=== PATIENT | female | born 1985 | race Caucasian/White ===

== ENCOUNTER 2018-07-28 16:45 | Outpatient (CLI) | payer OTHER ==
[2018-07-28 19:05] VITALS: BP 118/67; PULSE 90; RESP 16; TEMP 97.2
--- NOTE | 2018-07-28 19:11 | P.MSEPDOC ---
Presenting Problems - Arrival Data Date of Arrival on Unit: 07/28/18 Time of Arrival on Unit: 16:40 Mode of Transport: Ambulatory - Complaint OB-Reason for Admission/Chief Complaint: Decreased Movement Comment: decreased movement all day, but still having some movements Medical History - Information : 3 Para: 2 Term: 2 : 0 Abortions: Spontaneous or Elective: 0 Number of Living Children: 2 - Gestational Age Gestational Age by TIFFANY (wks/days): 37 Weeks and 4 Days - History Complications: Smoker Review of Systems - Review of Systems Constitutional: No problems Breast: No problems ENT: No problems Cardiovascular: No problems Respiratory: No problems Gastrointestinal: No problems Genitourinary: No problems Musculoskeletal: No problems Neurological: No problems Skin: No problems Vital Signs - Temperature Temperature: 97.2 F Temperature Source: Temporal Artery Scan - Pulse Right Pulse Rate: 90 Pulse Assessment Method: Pulse Oximetry - Respirations Respiratory Rate: 16 O2 Sat by Pulse Oximetry: 98 - Blood Pressure Right Arm Blood Pressure: 118/67 Blood Pressure Mean: 84 Blood Pressure Source: Automatic Cuff Medical Screen Scoring (Pre) - Cervical Exam Dilation: Exam Deferred Effacement: Exam Deferred - Uterine Contractions Frequency: > 5 minutes apart = 1 Duration: > 40 seconds = 2 Intensity: N/A - Maternal Vital Signs Maternal Temperature: N/A Maternal Blood Pressure: N/A Signs of Preeclampsia: N/A Maternal Respirations: N/A - Pain Assessment Pain Scale Used: Numeric (1 - 10) Pain Intensity: 0 - Assessment Baseline FHR: 125 Heart Rate - NICHD Category: Category I (Normal) = 0 NST: Reactive Position: N/A Station: N/A - Total Score Total Score (Pre): 3 - Level of Risk Level of Risk: Low (0-5) Physician Notification (Pre) - Physician Notified Physician Notified Date: 07/28/18 Physician Notified Time: 17:24 Physician/Practitioner Notifed:: Dr Andrade - Notification Comment Comment: reported on pts c/o having decreased movement throughout the day , but is still having some movement. pt was seen at [facility] and sent here for further evaluation. Reported on pt having +quad screen, and is having NSTs weekly and u/s biweekly. Next appt is in office on [place]. reactive fhts at this time, increased movement, pt feeling better. orders to d/c home with instructions, return with worsening sx, keep scheduled appt. Disposition - Disposition OB Disposition: Discharge to home Discharge Date: 07/28/18 Discharge Time: 17:35 I agree with the RN Medical Screening Exam: Yes Risk & Benefit of care provided described in d/c instruction: Yes Diagnosis: DECREASED MOVEMENTS, THIRD TRIMESTER, UNSP
== END 2018-07-28 17:35 | disposition home or self-care (01) ==
LOC: FBPOP 16:45
PROVIDERS: ATTEND Obstetrics & Gynecology
DX: O36.8130 Decreased fetal movements, third trimester, not applicable or unspecified (principal); O99.333 Smoking (tobacco) complicating pregnancy, third trimester; Z3A.37 37 weeks gestation of pregnancy
CPT/HCPCS: 59025; G0463; 99213

== ENCOUNTER 2018-08-02 02:45 | Outpatient (CLI) | payer OTHER ==
[2018-08-02 04:47] VITALS: BP 125/80; PULSE 89; RESP 16; TEMP 96.8
--- NOTE | 2018-08-04 11:39 | P.MSEPDOC ---
Presenting Problems - Arrival Data Date of Arrival on Unit: 08/02/18 Time of Arrival on Unit: 02:45 Mode of Transport: Ambulatory - Complaint OB-Reason for Admission/Chief Complaint: Possible Onset of Labor, Vaginal Bleeding Medical History - Information : 3 Para: 2 Term: 2 : 0 Abortions: Spontaneous or Elective: 0 Number of Living Children: 2 - Gestational Age Gestational Age by TIFFANY (wks/days): 38 Weeks and 2 Days - History Complications: Smoker Comment: pt to triage c/o contractions and bleedign when she wiped Review of Systems - Review of Systems Constitutional: No problems Breast: No problems ENT: No problems Cardiovascular: No problems Respiratory: No problems Gastrointestinal: No problems Genitourinary: No problems Musculoskeletal: No problems Neurological: No problems Skin: No problems Vital Signs - Temperature Temperature: 96.8 F Temperature Source: Temporal Artery Scan - Pulse Right Supine Brachial Pulse Rate: 89 Pulse Assessment Method: Automatic Cuff - Respirations Respiratory Rate: 16 Oxygen Delivery Method: Room Air O2 Sat by Pulse Oximetry: 98 - Blood Pressure Right Arm Supine Blood Pressure: 125/80 Blood Pressure Mean: 95 Blood Pressure Source: Automatic Cuff Medical Screen Scoring (Pre) - Cervical Exam Dilation: 1-3 cm = 1 Effacement: More than 50% = 2 Membranes: Intact - Uterine Contractions Frequency: > or = 36 weeks =2 Duration: > 40 seconds = 2 - Maternal Vital Signs Maternal Temperature: N/A Maternal Blood Pressure: N/A Signs of Preeclampsia: N/A - Pain Assessment Pain Location and Character: Medial, Abdomen Pain Scale Used: Numeric (1 - 10) Pain Intensity: 5 Pain Description: *Acute, Cramping Pain Frequency: Intermittent Pain Duration: 3 Pain Duration Units: Hours Pain Behavior: Moving Slowly Effects of Pain: contractions Pain Aggravating Factors: Contractions - Maternal Trauma Maternal Trauma: N/A - Assessment Baseline FHR: 120 Heart Rate - NICHD Category: Category I (Normal) = 0 NST: Reactive - Total Score Total Score (Pre): 7 - Level of Risk Level of Risk: Medium (6-9) Physician Notification (Pre) - Physician Notified Physician Notified Date: 08/02/18 Physician Notified Time: 04:10 Physician/Practitioner Notifed:: Dr Solorzano Spoke With: Dr Solorzano New Order Received: Yes (may discharge to home) - Notification Comment Comment: Pt was 2-3 in the office at last check, has appointment for monday with Dr Mazariegos, feels comfortable going home at this time Disposition - Disposition OB Disposition: Discharge to home Discharge Date: 08/02/18 Discharge Time: 04:18 I agree with the RN Medical Screening Exam: Yes Risk & Benefit of care provided described in d/c instruction: Yes Diagnosis: FALSE LABOR AT OR AFTER 37 COMPLETED WEEKS OF GESTATION
== END 2018-08-02 04:18 | disposition home or self-care (01) ==
LOC: FBPOP 02:45
PROVIDERS: ATTEND Obstetrics & Gynecology
DX: O47.1 False labor at or after 37 completed weeks of gestation (principal); Z3A.38 38 weeks gestation of pregnancy
CPT/HCPCS: 59025; G0463; 99213

== ENCOUNTER 2018-08-02 08:39 | Inpatient (IN) | payer OTHER ==
[2018-08-02] MEDS ORDERED: LIDOCAINE 0.5% (PF) 5 MG/ML (50 ML SDV) SQ PRN (09:01)
[2018-08-02] MEDS ORDERED: CARBOPROST TROMETHAMINE 250 MCG/ML 1 ML AMP IM PRN (09:01)
[2018-08-02] MEDS ORDERED: TERBUTALINE 1 MG/ML VIAL SQ PRN (09:01)
[2018-08-02] MEDS ORDERED: METHYLERGONOVINE 0.2 MG/ML 1 ML AMP IM PRN (09:01)
[2018-08-02] MEDS ORDERED: OXYTOCIN 10 UNIT/ML 1 ML VIAL IM PRN (09:01)
[2018-08-02 09:18] LABS: Basophils % (A) 0 %; Eosinophils # (A) 0.1 k/uL (0-0.7); Eosinophils % (A) 1 %; HCT 35.4 % (34.0-46.0); HGB 12.2 gm/dL (11.4-16.0); Lymphocytes # (A) 1.6 k/uL (1.0-4.8); Lymphocytes % (A) 9 %; MCH 32.9 pg (25.0-35.0); MCHC 34.5 g/dL (31.0-37.0); MCV 95.4 fL (80.0-100.0); Mean Platelet Volume 7.6; Monocytes # (A) 0.5 k/uL (0-1.0); Monocytes % (A) 3 %; Neutrophils # (A) 15.1 k/uL (1.3-7.7); Neutrophils % (A) 87 %; Platelet Count 211 k/uL (150-450); RBC 3.71 m/uL (3.80-5.40); RDW 13.5 % (11.5-15.5); WBC 17.5 k/uL (3.8-10.6)
--- NOTE | 2018-08-02 09:54 | P.HPOB ---
History of Present Illness H&P Date: 08/02/18 Chief Complaint: [place] 33-year-old presents at 38 weeks and 2 days in active labor. Her cervix was 6 cm dilated, 100% effaced, and -2 station. She is malachi every 2 minutes. heart tones 130-135 with moderate variability and reactive. Review of Systems All systems: negative Constitutional: Denies chills, Denies fever Eyes: denies blurred vision, denies pain Ears, nose, mouth and throat: Denies headache, Denies sore throat Cardiovascular: Denies chest pain, Denies shortness of breath Respiratory: Denies cough Gastrointestinal: Denies abdominal pain, Denies diarrhea, Denies nausea, Denies vomiting Genitourinary: Denies dysuria, Denies hematuria Musculoskeletal: Denies myalgias Integumentary: Denies pruritus, Denies rash Neurological: Denies numbness, Denies weakness Psychiatric: Denies anxiety, Denies depression Endocrine: Denies fatigue, Denies weight change Past Medical History Past Medical History: No Reported History Additional Past Medical History / Comment(s): Obstetrics history: She's had 2 previous vaginal deliveries, this is her third . She's had care with Dr. Sebastian. She did have an abnormal quad screen and was seen at [facility]. [facility] testing and ultrasound was normal. Blood type O+, antibodies negative , rubella immune, hepatitis B-, GBS negative, HIV nonreactive, RPR nonreactive. History of Any Multi-Drug Resistant Organisms: None Reported Past Surgical History: No Surgical Hx Reported Past Anesthesia/Blood Transfusion Reactions: No Reported Reaction Past Psychological History: No Psychological Hx Reported Smoking Status: Current every day smoker Past Alcohol Use History: None Reported Past Drug Use History: None Reported Medications and Allergies Home Medications Medication Instructions Recorded Confirmed Type Pnv,Calcium 72/Iron/Folic Acid 1 each PO DAILY 07/28/18 08/02/18 History [ Plus Tablet] Allergies Allergy/AdvReac Type Severity Reaction Status Date / Time No Known Allergies Allergy Verified 08/02/18 02:51 Exam Osteopathic Statement: *. No significant issues noted on an osteopathic structural exam other than those noted in the History and Physical/Consult. Intake and Output 08/01/18 08/02/18 08/02/18 22:59 06:59 14:59 Other: Weight 68.946 kg Heart: Regular rate and rhythm Lungs: Clear to auscultation bilaterally Abdomen: Soft, nontender Extremities: Negative Homans sign Results Result Diagrams: 08/02/18 09:05 Abnormal Lab Results - Last 24 Hours (Table) 08/02/18 Range/Units 09:05 WBC 17.5 H (3.8-10.6) k/uL RBC 3.71 L (3.80-5.40) m/uL Neutrophils # 15.1 H (1.3-7.7) k/uL Assessment and Plan (1) Normal labor Current Visit: Yes Status: Acute Code(s): O80 - ENCOUNTER FOR FULL-TERM UNCOMPLICATED DELIVERY; Z37.9 - OUTCOME OF DELIVERY, UNSPECIFIED SNOMED Code(s ): 57395816 Plan: 1. Admit to family place 2. Expectant management 3. Anticipate normal vaginal delivery
--- NOTE | 2018-08-02 09:56 | P.PROBDLV ---
Vaginal Delivery Note - . Vaginal Delivery Note: 33-year-old presents at 38 weeks and 2 days in active labor. Her cervix was 6 cm dilated, 100% effaced, and -2 station. She is malachi every 2 minutes. heart tones 130-135 with moderate variability and reactive. Patient was admitted for labor. Amniotomy was performed at 9:21 AM, clear fluid noted. Her cervix was completely dilated 941. She pushed, delivered a viable female over intact perineum at 9:44 AM. Head delivered OA, anterior shoulder which was the left shoulder delivered gentle downward guidance followed by posterior shoulder and rest of body. Nose and mouth bulb suctioned, cord clamped and cut, placed on mother's abdomen. Apgars 9, 9 , weight 6 lbs. 15 oz. Placenta delivered spontaneously, intact with three- vessel cord at 9:47 AM. Vagina, cervix, and perineum were inspected. No lacerations noted. Estimated blood loss 150 mL. Mother and baby in stable condition.
[2018-08-02 10:15] VITALS: BMI 26.1
[2018-08-02] MEDS ORDERED: LANOLIN CREAM 5 GM TUBE TOPICAL PRN (10:30)
[2018-08-02] MEDS ORDERED: diphenhydrAMINE 50 MG CAP PO PRN (10:30)
[2018-08-02] MEDS ORDERED: diphenhydrAMINE 25 MG CAP PO PRN (10:30)
[2018-08-02] MEDS ORDERED: WITCH HAZEL 1 EACH MED..PAD TOPICAL PRN (10:30)
[2018-08-02] MEDS ORDERED: HYDROCORTISONE 2.5% RECTAL CREAM 30 GM TUBE RECTAL PRN (10:30)
[2018-08-02] MEDS ORDERED: diphenhydrAMINE 50 MG/ML 1 ML VIAL IVP PRN ×2 (10:30)
[2018-08-02] MEDS ORDERED: BENZOCAINE/MENTHOL SPRAY 1 GM/SPRAY AEROSOL TOPICAL PRN (10:30)
[2018-08-02] MEDS ORDERED: ACETAMINOPHEN TAB 325 MG TAB PO PRN (10:30)
[2018-08-02] MEDS ORDERED: ZOLPIDEM 5 MG TAB PO PRN (10:30)
[2018-08-02] MEDS ORDERED: OXYTOCIN 20 UNITS/1000 ML NS 1,000 ML IV SCH (10:30)
[2018-08-02] MEDS ORDERED: SIMETHICONE 80 MG CHEWABLE PO PRN (10:30)
[2018-08-02] MEDS: IBUPROFEN 600 MG TAB PO PRN ×2 (10:52→16:05)
[2018-08-02] MEDS: LACTATED RINGERS 1,000 ML IV SCH ×3 (10:55→18:45)
[2018-08-02 11:46] VITALS: RESP 16
[2018-08-02] MEDS: SENNOSIDES-DOCUSATE SODIUM 1 EACH TAB PO SCH (20:01)
[2018-08-02 20:32] VITALS: TEMP 97.8
[2018-08-03 06:39] LABS: Basophils % (A) 0 %; Eosinophils # (A) 0.2 k/uL (0-0.7); Eosinophils % (A) 2 %; HCT 34.2 % (34.0-46.0); HGB 11.7 gm/dL (11.4-16.0); Lymphocytes # (A) 2.3 k/uL (1.0-4.8); Lymphocytes % (A) 17 %; MCH 33.4 pg (25.0-35.0); MCHC 34.2 g/dL (31.0-37.0); MCV 97.7 fL (80.0-100.0); Mean Platelet Volume 7.8; Monocytes # (A) 0.4 k/uL (0-1.0); Monocytes % (A) 3 %; Neutrophils % (A) 77 %; Platelet Count 203 k/uL (150-450); RDW 13.6 % (11.5-15.5); WBC 13.1 k/uL (3.8-10.6)
[2018-08-03 08:11] VITALS: BP 111/69; PULSE 70
--- NOTE | 2018-08-03 08:16 | P.DS ---
Providers Date of admission: 08/02/18 08:52 Expected date of discharge: 08/03/18 Attending physician: Tylor Mazariegos Primary care physician: Stated None Hospital Course: This is a 33-year-old female 3 para 2 at 38-2/7 weeks who presented with active labor. She delivered vaginally a viable female infant on 2017 with scores of 9 at 1 minute and 9 at 5 minutes and weight of 6 lbs. 15 oz. Her course is been essentially uncomplicated. She is bottle feeding but would like to try to pump her breast milk. Lochia is decreasing. Pain is fairly well controlled with oral pain medications. Vital signs are stable. Abdomen is soft with fundus firm and nontender. Extremities show negative Homans. Impression is status post vaginal delivery day #1. Plan is to discharge home today. Routine instructions are given. She is advised to follow up with Dr. Mazariegos in 6 weeks for a check. She will be given a prescription for ibuprofen and for a breast pump. She is advised to call the office if she has any further questions or concerns prior to her appointment time. Procedures: Spontaneous vaginal delivery of a viable female infant on 08/02/2018 Patient Condition at Discharge: Stable Plan - Discharge Summary New Discharge Prescriptions: New Ibuprofen [Motrin] 600 mg PO Q6HR PRN #60 tab PRN Reason: Mild Pain Or Fever >= 100.5 Continue Pnv,Calcium 72/Iron/Folic Acid [ Plus Tablet] 1 each PO DAILY Discharge Medication List Pnv,Calcium 72/Iron/Folic Acid [ Plus Tablet] 1 each PO DAILY 07/28/18 [ History] Ibuprofen [Motrin] 600 mg PO Q6HR PRN #60 tab 08/03/18 [Rx] Follow up Appointment(s)/Referral(s): Tlyor Mazariegos DO [Doctor of Osteopathic Medicine] - 6 Weeks Activity/Diet/Wound Care/Special Instructions: Instructions 1. Do not begin any exercise program for 3 weeks. 2. Do not resume sexual relations for 3 weeks or longer if uncomfortable. 3. You may take tub baths or showers at any time. 4. You may use tampons if desired after 3 weeks. 5. Keep the area of episiotomy (stitches) clean and dry. 6. If you are not nursing, wear a good fitting, supportive bra during the day and limit fluid intake for at least 1 week to prevent breast engorgement. 7. Call the office, [phone], within the next week to make appointment for your 6 week checkup if it has not already been made. 8. Report any of the following occurrences to the doctor promptly: a. Heavy, excessive bleeding b. Chills, fever c. Burning or frequency of urination d. Pain or redness and breasts if nursing e. Increasing pain or swelling in episiotomy (stitches). In addition to the above instructions, the following additional should be followed: 1. No heavy lifting or straining (exercising) until after 6 week checkup. 2. Keep abdominal incision clean and dry: You may wear a dressing if more comfortable. 3. Make office appointment for 10 days after going home or as instructed by her doctor. Discharge Disposition: HOME SELF-CARE
[2018-08-03] MEDS: SENNOSIDES-DOCUSATE SODIUM 1 EACH TAB PO SCH (08:36)
== END 2018-08-03 11:34 | disposition home or self-care (01) | DRG 807 ==
LOC: FBPOP 08:39 → 4FBP 08:52
PROVIDERS: ADMIT Obstetrics & Gynecology; ATTEND Obstetrics & Gynecology
PROC: 10E0XZZ Delivery of Products of Conception, External Approach (ICD-10-PCS; principal; 2018-08-02)
PROC: 10907ZC Drainage of Amniotic Fluid, Therapeutic from Products of Conception, Via Natural or Artificial Opening (ICD-10-PCS; principal; 2018-08-02)
DX: O99.334 Smoking (tobacco) complicating childbirth (principal); Z37.0 Single live birth; F17.200 Nicotine dependence, unspecified, uncomplicated; Z3A.38 38 weeks gestation of pregnancy
CPT/HCPCS: 85025; 86850; 86900; 86901

== ENCOUNTER 2018-10-15 06:43 | Day surgery (SDC) | payer OTHER ==
[2018-10-10 13:50] VITALS: BMI 23.3
--- NOTE | 2018-10-10 16:26 | P.HPOB ---
History of Present Illness H&P Date: 10/10/18 Chief Complaint: Family planning Patient is a 33-year-old female who has completed her family planning desires permanent sterilization. Risks/benefits/alternatives to a left scopic tubal occlusion with Filshie clips was explained to the patient in detail and all questions were answered for her prior to proceeding to the operative room. On physical exam vital signs are stable and afebrile. Heart regular, lungs clear, extremities without pain. Abdomen soft nontender positive bowel sounds are noted. Past Medical History Past Medical History: No Reported History Additional Past Medical History / Comment(s): chronic back pain History of Any Multi-Drug Resistant Organisms: None Reported Past Surgical History: No Surgical Hx Reported Past Anesthesia/Blood Transfusion Reactions: No Reported Reaction Additional Past Anesthesia/Blood Transfusion Reaction / Comment(s): pt has never received anesthsia Past Psychological History: No Psychological Hx Reported Smoking Status: Current every day smoker Past Alcohol Use History: None Reported Additional Past Alcohol Use History / Comment(s): smokes 1/2 ppd. , smoking for 10-11 years. Past Drug Use History: Marijuana Additional Drug Use History / Comment(s): current marijuana use- has card for back pain - Past Family History Mother Family Medical History: No Reported History Medications and Allergies Home Medications Medication Instructions Recorded Confirmed Type Ibuprofen [Motrin] 600 mg PO Q6HR PRN 10/10/18 10/10/18 History Allergies Allergy/AdvReac Type Severity Reaction Status Date / Time No Known Allergies Allergy Verified 10/10/18 13:29 Exam Osteopathic Statement: *. No significant issues noted on an osteopathic structural exam other than those noted in the History and Physical/Consult. Intake and Output 10/10/18 10/10/18 10/10/18 06:59 14:59 22:59 Other: Weight 61.689 kg - OBG Physical Exam Breast: both: normal (no masses) Abdomen: bowel sounds normal, no diffuse tenderness, no bruit present, no guarding noted, no hepatomegaly, no splenomegaly, no mass Vulva: both: normal Vagina: normal moisture, no discharge Cervix: no lesion, no discharge Uterus: normal size, normal contour Adnexa: both: normal Anus/Rectum: normal perianal skin, no rectal mass, no hemorrhoids, heme negative
[~2018-10-15 06:43] MED LIST: DEXAMETHASONE SOD PHOSPHATE 10 MG/ML 1 ML VIAL IV ONE; HYDROmorphone 0.5 MG/0.5 ML SYRINGE IVP PRN; LACTATED RINGERS 1,000 ML IV SCH; MIDAZOLAM (PF) 2 MG/2 ML VIAL IV PRN; ONDANSETRON 4 MG/2 ML VIAL IVP ONE; Pre Op ABX Message 1 EACH MISC MISCELLANE ONE; SCOPOLAMINE 1.5MG/72HR PATCH TRANSDERM ONE
[2018-10-15] MEDS ORDERED: BUPIVACAINE (PF) 0.25% 30 ML VIAL SQ ONE ×2 (07:38→07:41)
[2018-10-15] MEDS ORDERED: GLYCOPYRROLATE 0.2 MG/ML 2 ML VIAL ONE (07:41)
[2018-10-15] MEDS ORDERED: HYDROmorphone (PF) 1 MG/ML ONE (07:41)
[2018-10-15] MEDS ORDERED: KETOROLAC 30 MG/ML 1 ML VIAL ONE (07:41)
[2018-10-15] MEDS ORDERED: fentaNYL (PF) 50 MCG/ML 2 ML AMP ONE (07:41)
[2018-10-15] MEDS ORDERED: NEOSTIGMINE 1 MG/ML 10 ML VIAL ONE (07:41)
[2018-10-15] MEDS ORDERED: LIDOCAINE 1% INJ 10MG/ML (20 ML MDV) ONE (07:41)
[2018-10-15] MEDS ORDERED: PROPOFOL 10 MG/ML 20 ML VIAL IV ONE (07:41)
[2018-10-15] MEDS ORDERED: MIDAZOLAM 2 MG/2 ML VIAL ONE (07:41)
[2018-10-15] MEDS ORDERED: ROCURONIUM BROMIDE 10 MG/ML 10 ML VIAL IV ONE (07:41)
[2018-10-15] MEDS ORDERED: SUCCINYLCHOLINE CHLORIDE 100 MG/5 ML SYR IV ONE (07:41)
--- NOTE | 2018-10-15 08:28 | P.OP ---
Date of Procedure: 10/15/18 Preoperative Diagnosis: Family planning Postoperative Diagnosis: Same Procedure(s) Performed: Laparoscopic tubal occlusion with Filshie clips Anesthesia: KARLOS Surgeon: Tylor Mazariegos Estimated Blood Loss (ml): 5 IV fluids (ml): 500 Urine output (ml): 20 Pathology: none sent Condition: stable Disposition: same day Operative Findings: Normal female pelvic anatomy Description of Procedure: Patient was taken to the operating suite where a general anesthetic was found be adequate. She was prepped and draped in the normal sterile fashion and placed in dorsal lithotomy position. Initially a speculum was inserted into the vagina and the anterior lip of cervix was identified and grasped with an Allis clamp. Uterus was then sounded to 8 cm and a manipulator was inserted without difficulty. Other instruments from were removed from vagina and a red rubber catheter was used to drain the bladder of urine. Gloves were then changed and attention was turned to the abdominal portion procedure where 2 mL of quarter percent Marcaine was injected periumbilically. Through this injected anesthetic a 5 mm skin incision was made and through this incision under direct visualization with an optical trocar and sleeve the camera was inserted. Once peritoneal placement was assured gas was left fully insufflate the abdomen and patient was then placed in steep Trendelenburg position. Second 8 mm skin incision was then made 3 cm above the pubic symphysis in the midline and through this incision again under direct visualization, the trocar and sleeve were inserted. Once this was finished uterus was elevated and observations the pelvis were noted. First the right fallopian tube than the left fallopian tube had a Filshie clip applied between 2 and 3 cm from uterine cornu. Once completed no bleeding is noted in the mesosalpinx therefore, instruments were removed and gas was allowed to expel from the abdomen. 5 deep breaths were provided during this process. Once completed 4-0 Vicryl was used to close incision subcuticularly and the remaining 8 mL of local anesthetic was injected around the incisions. All other incidents were then removed. Sponge, lap, needle counts were correct 2. Patient was then taken to the recovery room in stable and satisfactory condition. Plan - Discharge Summary Discharge Rx Participant: No New Discharge Prescriptions: New HYDROcodone/APAP 5-325MG [[place] 5-325] 1 tab PO Q4HR PRN #30 tab PRN Reason: Pain No Action Ibuprofen [Motrin] 600 mg PO Q6HR PRN PRN Reason: Pain Discharge Medication List Ibuprofen [Motrin] 600 mg PO Q6HR PRN 10/10/18 [History] HYDROcodone/APAP 5-325MG [[place] 5-325] 1 tab PO Q4HR PRN #30 tab 10/15/18 [Rx] Follow up Appointment(s)/Referral(s): Tylor Mazariegos DO [Doctor of Osteopathic Medicine] - 2 Weeks Activity/Diet/Wound Care/Special Instructions: No heavy lifting, limit stairs and driving, and pelvic rest. If any high temperatures, heavy bleeding, or severe pain call my office Discharge Disposition: HOME SELF-CARE
[2018-10-15 08:30] VITALS: TEMP 97.3
[2018-10-15 08:31] VITALS: RESP 16
[2018-10-15 10:06] VITALS: BP 121/67; PULSE 54
== END 2018-10-15 09:49 | disposition home or self-care (01) ==
LOC: OR 06:43
PROVIDERS: ATTEND Obstetrics & Gynecology
DX: Z30.2 Encounter for sterilization (principal); F17.210 Nicotine dependence, cigarettes, uncomplicated; F12.90 Cannabis use, unspecified, uncomplicated
CPT/HCPCS: 81025; 58671; J2250; J1100; J2710; J2405; J2001; J3010; J1885; J1170; J0330; J2704